=== PATIENT | female | born 1930 | race Caucasian/White ===

== ENCOUNTER 2020-05-31 14:20 | Inpatient (IN) | payer MEDICARE, OTHER ==
[~2020-05-31] VITALS: Ht 165.1 cm; Wt 73.9 kg
--- NOTE | 2020-06-02 19:30 | NUR ---
Received patient, awake, alert and oriented x 3, able to make needs known. Denies any pain/discomforts at this time. Oriented to room, call lights and bed functions. Routine admission care done. Plan of care initiated. Safety measures and fall prevention observed.
[2020-06-02] MEDS ORDERED: Z GUARD REMEDY PASTE 57 GM TUBE TOP PRN (19:45)
[2020-06-02] MEDS ORDERED: AMLO2.5T4 PO (19:50)
[2020-06-02] MEDS ORDERED: DONE10TA44 PO (19:50)
[2020-06-02] MEDS ORDERED: ASPI81TA31 PO (19:50)
[2020-06-02 20:09] VITALS: BP 148/58
[2020-06-03] MEDS: ACETAMINOPHEN 325 MG TABLET PO PRN (02:30)
[2020-06-03 04:12] VITALS: BP 152/67
[2020-06-03 08:00] VITALS: BP 170/67
[2020-06-03] MEDS: hydrALAZINE HCL 25 MG TABLET PO PRN ×2 (08:10→20:14)
[2020-06-03] MEDS: HYDROCODONE/APAP 5-325MG TABLET PO PRN ×2 (08:11→21:54)
[2020-06-03] MEDS: AMLODIPINE 2.5 MG TABLET PO SCH (08:11)
[2020-06-03 12:54] VITALS: BP 144/70
[2020-06-03 14:51] LABS: BASOPHILS # (AUTO) 0.1 K/uL (0.0-8.0); BASOPHILS % (AUTO) 0.7 % (0.0-2.0); EOSINOPHILS # (AUTO) 0.1 K/uL (0.0-0.7); HEMATOCRIT 22.4 % (31.2-41.9); HEMOGLOBIN 7.5 g/dL (10.9-14.3); LYMPHOCYTES # (AUTO) 1.5 K/uL (20.0-40.0); LYMPHOCYTES % (AUTO) 15.9 % (20.5-51.5); MEAN CORPUSCULAR HEMOGLOBIN 29.2 uug (24.7-32.8); MEAN CORPUSCULAR HGB CONC 34 g/dL (32.3-35.6); MEAN CORPUSCULAR VOLUME 87.4 fL (75.5-95.3); MONOCYTES # (AUTO) 0.6 K/uL (2.0-10.0); MONOCYTES % (AUTO) 6.9 % (0.0-11.0); NEUTROPHILS # (AUTO) 7.1 K/uL (1.8-8.9); NEUTROPHILS % (AUTO) 75.5 % (38.5-71.5); PLATELET COUNT (AUTO) 245 K/uL (179-408); RED BLOOD CELL COUNT(AUTO) 2.57 MIL/uL (3.63-4.92); WHITE BLOOD COUNT (AUTO) 9.4 K/uL (3.8-11.8)
[2020-06-03 14:59] LABS: CREATININE 0.8 mg/dL (0.6-1.3); POTASSIUM 4.3 mmol/L (3.5-5.1)
[2020-06-03 15:18] VITALS: BP 145/55
--- NOTE | 2020-06-03 15:29 | NUR ---
[facility]older Note: SW met with the pts daughter, Dara ([phone]), and SW provided her and the patient with the following caregiving resources: [facility]; ([phone]), [facility]; ([phone]), [facility]; ([phone]). boom stick worker will continue to remain available to patient and provide ongoing supportive counseling and assess for any psychosocial needs. boom stick worker will encourage patient to comply with ARU goals of care.
[2020-06-03 20:12] VITALS: BP 168/70
--- NOTE | 2020-06-03 20:15 | NUR ---
Received patient, awake, alert and oriented x 4, makes needs known. Elevated blood pressure 168/70 HR 74 administered hydralazine PRN.
[2020-06-03] MEDS ORDERED: ENOXAPARIN SODIUM 40 MG/0.4 ML DISP.SYRIN SQ SCH (21:00)
--- NOTE | 2020-06-03 22:00 | NUR ---
all due medication administered and tolerated well. Complaint of 7/10 pain in right hip, administered [place] PRN, will monitor for effect. All needs attended to promptly. PM care completed. kept clean dy and comfortable. Safety measures and fall prevention maintained. will continue to monitor throughout the night.
[2020-06-04 04:42] VITALS: BP 149/63
[2020-06-04] MEDS: HYDROCODONE/APAP 5-325MG TABLET PO PRN ×3 (05:43→18:20)
--- NOTE | 2020-06-04 05:51 | NUR ---
patient slept well through the night. no acute distress. PRN pain medication effective but complaining of 8/10 pain at the moment. Administered [place] PRN, per pt request. All needs met. Will endorse oncoming nurse to continue plan of care.
[2020-06-04 08:00] VITALS: BP 131/60
[2020-06-04] MEDS ORDERED: AMLODIPINE 2.5 MG TABLET PO SCH (09:00)
[2020-06-04] MEDS: AMLODIPINE 2.5 MG TABLET PO SCH (09:27)
[2020-06-04] MEDS: ASPIRIN EC 325 MG TABLET.DR PO SCH (09:28)
[2020-06-04] MEDS: DONEPEZIL 10 MG TABLET PO SCH (09:29)
[2020-06-04 16:00] VITALS: BP 113/62
[2020-06-04 20:00] VITALS: BP 151/60
[2020-06-05 04:00] VITALS: BP 155/58
[2020-06-05] MEDS: ACETAMINOPHEN 325 MG TABLET PO PRN ×2 (04:44→23:01)
--- NOTE | 2020-06-05 05:44 | NUR ---
Received pt resting in bed. AAO x3-4, able to make needs known. No acute distress. Denies pain/ discomfort @ beginning of shift . Requested pain medication for pain, administered Tylenol, effective. No s/s of infection on surgical site, scant amount of drainage noted, changed dressing. Incontinent of both B/B. All needs attended to promptly. Kept comfortable, clean and dry. Safety measures maintained. Call light and personal items within reach. Will continue to monitor.
[2020-06-05 08:00] VITALS: BP 150/57
[2020-06-05] MEDS: ASPIRIN EC 325 MG TABLET.DR PO SCH (08:14)
[2020-06-05] MEDS: AMLODIPINE 2.5 MG TABLET PO SCH (08:15)
[2020-06-05] MEDS: DONEPEZIL 10 MG TABLET PO SCH (08:15)
[2020-06-05] MEDS: HYDROCODONE/APAP 5-325MG TABLET PO PRN (09:11)
--- NOTE | 2020-06-05 13:29 | NUR ---
INDIVIDUALIZED PLAN OF CARE
[2020-06-05 20:30] VITALS: BP 131/42
[2020-06-06 05:27] VITALS: BP 158/67
[2020-06-06 08:00] VITALS: BP 141/52
[2020-06-06] MEDS: DONEPEZIL 10 MG TABLET PO SCH (08:24)
[2020-06-06] MEDS: ASPIRIN EC 325 MG TABLET.DR PO SCH (08:24)
[2020-06-06] MEDS: HYDROCODONE/APAP 5-325MG TABLET PO PRN ×2 (08:29→15:48)
[2020-06-06] MEDS: AMLODIPINE 2.5 MG TABLET PO SCH (08:29)
[2020-06-06 16:00] VITALS: BP 151/43
[2020-06-06 20:00] VITALS: BP 151/59
--- NOTE | 2020-06-06 20:15 | NUR ---
Received patient in bed.Alert and able to make needs known.Denied pain at this time.S/P right hip surgery IM nailing.Surgical site with stapes intact. Dressing clean and dry.Due meds given. Continue safety measures .Call light with in reach.Will continue to monitor.
[2020-06-06] MEDS: DOCUSATE SODIUM 100 MG CAPSULE PO SCH (20:48)
[2020-06-07 06:45] LABS: BASOPHILS # (AUTO) 0.1 K/uL (0.0-8.0); BASOPHILS % (AUTO) 1.7 % (0.0-2.0); EOSINOPHILS # (AUTO) 0.2 K/uL (0.0-0.7); EOSINOPHILS % (AUTO) 2.9 % (0.0-7.0); HEMATOCRIT 23.4 % (31.2-41.9); HEMOGLOBIN 7.7 g/dL (10.9-14.3); LYMPHOCYTES # (AUTO) 1.2 K/uL (20.0-40.0); LYMPHOCYTES % (AUTO) 19.5 % (20.5-51.5); MEAN CORPUSCULAR HEMOGLOBIN 29.2 uug (24.7-32.8); MEAN CORPUSCULAR HGB CONC 33 g/dL (32.3-35.6); MEAN CORPUSCULAR VOLUME 88.7 fL (75.5-95.3); MONOCYTES # (AUTO) 0.7 K/uL (2.0-10.0); MONOCYTES % (AUTO) 11.3 % (0.0-11.0); NEUTROPHILS % (AUTO) 64.6 % (38.5-71.5); PLATELET COUNT (AUTO) 358 K/uL (179-408); RED BLOOD CELL COUNT(AUTO) 2.64 MIL/uL (3.63-4.92); WHITE BLOOD COUNT (AUTO) 6.2 K/uL (3.8-11.8)
[2020-06-07 07:01] VITALS: BP 150/62
[2020-06-07 07:31] LABS: CREATININE 0.9 mg/dL (0.6-1.3); MAGNESIUM 2.3 mg/dL (1.8-2.4); PHOSPHOROUS 3.7 mg/dL (2.5-4.9); POTASSIUM 3.9 mmol/L (3.5-5.1)
[2020-06-07] MEDS: HYDROCODONE/APAP 5-325MG TABLET PO PRN ×2 (07:53→15:52)
[2020-06-07 08:00] VITALS: BP 133/61
[2020-06-07] MEDS: DOCUSATE SODIUM 100 MG CAPSULE PO SCH ×2 (08:21→21:19)
[2020-06-07] MEDS: AMLODIPINE 2.5 MG TABLET PO SCH (08:21)
[2020-06-07] MEDS: ASPIRIN EC 325 MG TABLET.DR PO SCH (08:22)
[2020-06-07] MEDS: DONEPEZIL 10 MG TABLET PO SCH (08:22)
[2020-06-07 16:00] VITALS: BP 148/70
--- NOTE | 2020-06-07 17:40 | NUR ---
no changes noted during shift, pain is well managed with pain medication and with nonpharmacological interventions, no active bleeding noted from incision site, well approximated. needs attended timely
[2020-06-07 21:04] VITALS: BP 120/48
[2020-06-07] MEDS: ACETAMINOPHEN 325 MG TABLET PO PRN (21:19)
--- NOTE | 2020-06-07 22:00 | NUR ---
Received pt resting in bed. AAO x3-4, able to make needs known. No acute distress, no SOB noted. Complaint of 4/10 aching pain, administered Tylenol PRN. No s/s of infection on surgical site, clean, dry and intact changed dressing. All needs attended to promptly. Kept comfortable. Safety measures maintained. Call light and personal items within reach. Will continue to monitor.
[2020-06-08 04:45] VITALS: BP 150/65
[2020-06-08] MEDS: HYDROCODONE/APAP 5-325MG TABLET PO PRN ×2 (06:27→13:08)
[2020-06-08 08:00] VITALS: BP 140/63
[2020-06-08] MEDS: DOCUSATE SODIUM 100 MG CAPSULE PO SCH ×2 (08:35→21:57)
[2020-06-08] MEDS: DONEPEZIL 10 MG TABLET PO SCH (08:35)
[2020-06-08] MEDS: AMLODIPINE 2.5 MG TABLET PO SCH (08:35)
[2020-06-08] MEDS: ASPIRIN EC 325 MG TABLET.DR PO SCH (08:35)
[2020-06-08] MEDS ORDERED: HYDROCODONE/APAP 10-325 MG TABLET PO PRN (15:00)
--- NOTE | 2020-06-08 15:03 | NUR ---
changed norco to 10/325mg ordered by dr mcconnell, for better management of pain in right hip, patient is alert, oriented x2-3, with episodes of forgetfulness, no sob, resp even nonlabored, skin warm and to touch, incision site is clean and dry, stapes are intact, site is well approximated, no signs and symptoms of infection noted at incision site, needs attended timely,
[2020-06-08] MEDS: hydrALAZINE HCL 25 MG TABLET PO PRN (15:41)
[2020-06-08 16:06] VITALS: BP 161/73
[2020-06-08 20:00] VITALS: BP 139/45
[2020-06-09 04:45] VITALS: BP 131/72
--- NOTE | 2020-06-09 05:48 | NUR ---
AAOx2-3 forgetful at times with a little bit confusion. VSS. Needs attended. Tolerated po meds well. OOB with walker with max assist. Voiding freely. Right hip incision dionicio intact. No acute distress noted. Fall precautions maintained. Siderails up for safety.
[2020-06-09] MEDS: DONEPEZIL 10 MG TABLET PO SCH (08:34)
[2020-06-09] MEDS: ASPIRIN EC 325 MG TABLET.DR PO SCH (08:36)
[2020-06-09] MEDS: DOCUSATE SODIUM 100 MG CAPSULE PO SCH ×2 (08:36→20:24)
[2020-06-09] MEDS: AMLODIPINE 2.5 MG TABLET PO SCH (08:39)
--- NOTE | 2020-06-09 13:02 | NUR ---
INTERDISCIPLINARY TEAM CONFERENCE
[2020-06-09] MEDS: ACETAMINOPHEN 325 MG TABLET PO SCH ×2 (13:47→17:19)
[2020-06-09 16:36] VITALS: BP 125/49
[2020-06-09 20:25] VITALS: BP 120/45
[2020-06-09] MEDS: CELECOXIB 100 MG CAPSULE PO SCH (20:29)
[2020-06-10] MEDS: HYDROCODONE/APAP 5-325MG TABLET PO PRN (01:44)
--- NOTE | 2020-06-10 02:00 | NUR ---
Received pt resting in bed. AAO x3-4, able to make needs known, No acute distress, no SOB noted. Complaint of 6/10 aching pain, administered hydrocodone PRN. No s/s of infection on surgical site, clean, dry and intact changed dressing. All needs attended to promptly. Kept comfortable. Safety measures maintained. Call light and personal items within reach. Will continue to monitor.
[2020-06-10 04:15] VITALS: BP 150/56
[2020-06-10 08:00] VITALS: BP 143/57
[2020-06-10] MEDS: DOCUSATE SODIUM 100 MG CAPSULE PO SCH ×2 (09:33→20:29)
[2020-06-10] MEDS: ACETAMINOPHEN 325 MG TABLET PO SCH ×3 (09:34→17:48)
[2020-06-10] MEDS: DONEPEZIL 10 MG TABLET PO SCH (09:34)
[2020-06-10] MEDS: ASPIRIN EC 325 MG TABLET.DR PO SCH (09:34)
[2020-06-10] MEDS: AMLODIPINE 2.5 MG TABLET PO SCH (09:34)
[2020-06-10] MEDS: CELECOXIB 100 MG CAPSULE PO SCH ×2 (09:37→20:29)
[2020-06-10 16:00] VITALS: BP 140/52
--- NOTE | 2020-06-10 18:43 | NUR ---
EOSS: No significant acute changes during this shift. No changes in pt. LOC. All due medications given as ordered with no ASE. Pt. participated with PT and tolerated tx well. No new skin condition noted. Safety measures in place. Call light and all frequently used items within pt. reach. Will endorse to oncoming shift accordingly.
[2020-06-10 20:00] VITALS: BP 148/57
--- NOTE | 2020-06-10 23:15 | NUR ---
No acute distress, no SOB noted. No s/s of infection on surgical site, clean, dry and intact changed dressing. All needs attended to promptly.All due medication administered and tolerated well. Kept comfortable. Safety measures maintained. Call light and personal items within reach. Will continue to monitor throughout the night.
[2020-06-11] MEDS: HYDROCODONE/APAP 5-325MG TABLET PO PRN (01:46)
[2020-06-11 04:00] VITALS: BP 147/73
--- NOTE | 2020-06-11 04:56 | NUR ---
patient slept well through the night. no acute distress. Administered [place] PRN, per pt request, complaint of pain in hip and could not sleep. All needs met. Will endorse oncoming nurse to continue plan of care.
[2020-06-11 08:00] VITALS: BP 160/66
[2020-06-11] MEDS: ACETAMINOPHEN 325 MG TABLET PO SCH ×3 (10:32→17:41)
[2020-06-11] MEDS: DOCUSATE SODIUM 100 MG CAPSULE PO SCH ×2 (10:32→20:50)
[2020-06-11] MEDS: DONEPEZIL 10 MG TABLET PO SCH (10:32)
[2020-06-11] MEDS: ASPIRIN EC 325 MG TABLET.DR PO SCH (10:32)
[2020-06-11] MEDS: CELECOXIB 100 MG CAPSULE PO SCH ×2 (10:33→20:50)
[2020-06-11] MEDS: AMLODIPINE 2.5 MG TABLET PO SCH (10:33)
[2020-06-11 16:00] VITALS: BP 139/70
[2020-06-11 21:04] VITALS: BP 129/58
--- NOTE | 2020-06-12 01:54 | NUR ---
Resting in bed upon initial rounds. AAOx1-2 Confused and disoriented at times. VSS No acute distress noted. Tolerated po meds well without difficulty. Incontinent of urine x3. Kept clean and dry. No BM noted this shift. Will monitor patient. Fall precautions maintained. Siderails up for safety. Bed alarm on. Right incision with dionicio intact with dressing clean dry and clean. No complaints presented during shift.
[2020-06-12 05:48] VITALS: BP 152/59
--- NOTE | 2020-06-12 06:36 | NUR ---
End of shift notes: Patient slept at short intervals. Confused and oriented. Incontinent of bowel and bladder. Kept clean and dry. Patient very needy. All needs attended and met. Will monitor patient. Repositioned.VSS.
[2020-06-12 09:48] VITALS: BP 151/64
[2020-06-12] MEDS: ASPIRIN EC 325 MG TABLET.DR PO SCH (09:56)
[2020-06-12] MEDS: CELECOXIB 100 MG CAPSULE PO SCH ×2 (09:56→20:24)
[2020-06-12] MEDS: DOCUSATE SODIUM 100 MG CAPSULE PO SCH ×2 (09:56→20:24)
[2020-06-12] MEDS: ACETAMINOPHEN 325 MG TABLET PO SCH ×3 (09:56→17:00)
[2020-06-12] MEDS: DONEPEZIL 10 MG TABLET PO SCH (09:56)
[2020-06-12] MEDS: AMLODIPINE 2.5 MG TABLET PO SCH (09:57)
[2020-06-12 12:26] VITALS: BP 138/60
[2020-06-12 15:47] VITALS: BP 155/77
--- NOTE | 2020-06-12 18:59 | NUR ---
Gps/Concrete Form Setter- Complained of constantly being cold, assisted with her repositioning, oob to her wheel chair ,safety reviewed and cntinue to emphasized. . OOB to chair, participated with her P.T.
[2020-06-12 20:22] VITALS: BP 142/56
--- NOTE | 2020-06-13 03:52 | NUR ---
Condition unchanged. Admitted for a right hip IM nailing on 05/30/[address] Hernández. AAO x4 Needs attended. VSS. Kept comfortable. Will monitor patient. No acute distress noted. Tolerated po meds. Patient on fall preventiion. Incontinent of bowel and bladder. Kept clean and dry.
[2020-06-13 05:06] VITALS: BP 158/59
--- NOTE | 2020-06-13 06:42 | NUR ---
End of shift notes: slept well throughout the night. No signs of restlessness or agitation. Kept comfortable. Incontinent of urine x3. Kept clean and dry. Fall precautions maintained. Siderails up for safety.
[2020-06-13 07:42] VITALS: BP 153/62
[2020-06-13] MEDS: ASPIRIN EC 325 MG TABLET.DR PO SCH (08:07)
[2020-06-13] MEDS: CELECOXIB 100 MG CAPSULE PO SCH ×2 (08:08→20:16)
[2020-06-13] MEDS: DOCUSATE SODIUM 100 MG CAPSULE PO SCH ×2 (08:08→20:16)
[2020-06-13] MEDS: ACETAMINOPHEN 325 MG TABLET PO SCH ×3 (08:08→17:00)
[2020-06-13] MEDS: AMLODIPINE 2.5 MG TABLET PO SCH (08:09)
[2020-06-13] MEDS: DONEPEZIL 10 MG TABLET PO SCH (08:09)
--- NOTE | 2020-06-13 10:48 | NUR ---
AAOx1-2 All med given without difficulty. Tolerated po meds well. Ate fairly at breakfast. Incontinent of bowel and bladder. Tolerated am care. OOB with PT. No distress noted.
--- NOTE | 2020-06-13 14:10 | NUR ---
Patient scheduled for rehabilitation. Conversant and understood rehabilitation plan for strength and endurance building. Patient encouraged to participate fully with acute rehab therapist.
--- NOTE | 2020-06-13 15:31 | NUR ---
Patient returned from rehabilitation. Report received from therapist; and making slight progress. Patient alert and verbal of needs. Denies any shortness of breath. Patient was placed in bed. Ad feliz without any distress at this time.
[2020-06-13 16:00] VITALS: BP 144/52
[2020-06-13 20:50] VITALS: BP 123/66
--- NOTE | 2020-06-13 21:25 | NUR ---
Received pt resting in bed. AAO x3-4. Pt appears to be pleasant. No acute distress noted. Denies pain/ discomfort. Due meds given as ordered, tolerated well. Safety measures maintained. Call light and personal items within reach. Will continue to monitor.
[2020-06-14 05:01] VITALS: BP 158/66
[2020-06-14 08:00] VITALS: BP 133/61
[2020-06-14] MEDS: ACETAMINOPHEN 325 MG TABLET PO SCH ×3 (08:11→17:28)
[2020-06-14] MEDS: DONEPEZIL 10 MG TABLET PO SCH (08:11)
[2020-06-14] MEDS: DOCUSATE SODIUM 100 MG CAPSULE PO SCH ×2 (08:11→20:38)
[2020-06-14] MEDS: AMLODIPINE 2.5 MG TABLET PO SCH (08:12)
[2020-06-14] MEDS: CELECOXIB 100 MG CAPSULE PO SCH ×2 (09:52→20:38)
[2020-06-14] MEDS: ASPIRIN EC 325 MG TABLET.DR PO SCH (09:52)
[2020-06-14] MEDS: HYDROCODONE/APAP 5-325MG TABLET PO PRN (14:10)
[2020-06-14 16:00] VITALS: BP 110/47
--- NOTE | 2020-06-14 18:00 | NUR ---
Informed Dr. Olvera regarding noted decreased PO intake and daughter's complain of episode of altered mental status, MD ordered CBC, CMP, magnesium in am. Patient remains awake, alert, oriented x 2-3 with episodes of forgetfulness, not in any form of distress, on room air, compliant with medications and care. Complained of pain on the right hip, given PRN pain medication as ordered with noted relief. Needs attended to promptly. Patient participated with therapy. Call light and frequently used items placed within patient's reach. Surgical dressing change done on right hip, dionicio intact, no noted signs of infection. Will continue to monitor and will endorse accordingly.
[2020-06-14 20:09] VITALS: BP 142/60
--- NOTE | 2020-06-15 04:00 | NUR ---
PATIENT IS IN BED, ALERT AND VERBALLY RESPONSIVE, CAN MAKE NEEDS KNOWN. PATIENT HAD INTERMITTENT SLEEP DURING THE NIGHT. PATIENT RECEIVED DUE MEDICATIONS, TOLERATED WELL. RECEIVED ORDER FOR COVID ANTIGEN TEST AND RIGHT HIP XRAY FOR POSSIBLE DISCHARGE PER ELECTRONIC [employer] TECHNICIAN ENDORSED BY AM NURSE.
[2020-06-15 04:03] VITALS: BP 140/58
[2020-06-15 06:32] LABS: BASOPHILS % (AUTO) 0.5 % (0.0-2.0); EOSINOPHILS % (AUTO) 0.5 % (0.0-7.0); HEMATOCRIT 27.1 % (31.2-41.9); HEMOGLOBIN 8.9 g/dL (10.9-14.3); LYMPHOCYTES # (AUTO) 1.2 K/uL (20.0-40.0); LYMPHOCYTES % (AUTO) 28.5 % (20.5-51.5); MEAN CORPUSCULAR HEMOGLOBIN 29.1 uug (24.7-32.8); MEAN CORPUSCULAR HGB CONC 33 g/dL (32.3-35.6); MEAN CORPUSCULAR VOLUME 89.1 fL (75.5-95.3); MONOCYTES # (AUTO) 0.4 K/uL (2.0-10.0); MONOCYTES % (AUTO) 8.7 % (0.0-11.0); NEUTROPHILS # (AUTO) 2.6 K/uL (1.8-8.9); NEUTROPHILS % (AUTO) 61.8 % (38.5-71.5); PLATELET COUNT (AUTO) 386 K/uL (179-408); RED BLOOD CELL COUNT(AUTO) 3.04 MIL/uL (3.63-4.92); WHITE BLOOD COUNT (AUTO) 4.2 K/uL (3.8-11.8)
[2020-06-15 06:43] LABS: BILIRUBIN,TOTAL 0.6 mg/dL (0.2-1.0); CREATININE 0.9 mg/dL (0.6-1.3); MAGNESIUM 2.3 mg/dL (1.8-2.4); POTASSIUM 4.1 mmol/L (3.5-5.1); TOTAL PROTEIN, SERUM 6.6 g/dL (6.4-8.2)
[2020-06-15 07:53] VITALS: BP 158/59
[2020-06-15] MEDS: AMLODIPINE 2.5 MG TABLET PO SCH (08:43)
[2020-06-15] MEDS: DOCUSATE SODIUM 100 MG CAPSULE PO SCH ×2 (08:43→20:38)
[2020-06-15] MEDS: DONEPEZIL 10 MG TABLET PO SCH (08:43)
[2020-06-15] MEDS: ACETAMINOPHEN 325 MG TABLET PO SCH ×3 (08:43→16:39)
[2020-06-15] MEDS: ASPIRIN EC 325 MG TABLET.DR PO SCH (08:43)
[2020-06-15] MEDS: CELECOXIB 100 MG CAPSULE PO SCH ×2 (08:43→20:38)
[2020-06-15 16:00] VITALS: BP 137/52
--- NOTE | 2020-06-15 19:14 | NUR ---
no changes noted during shift
[2020-06-15 20:00] VITALS: BP 139/67
[2020-06-16] MEDS: HYDROCODONE/APAP 5-325MG TABLET PO PRN (02:26)
[2020-06-16 04:00] VITALS: BP 161/65
--- NOTE | 2020-06-16 04:43 | NUR ---
AAOx2=3 No acute distress noted. VSS kept comfortable. Patient right hip dressing intact. Needs attended. Voiding okay. Will monitor patient. Call drummond within reach. Patient COVID negative. Possible d/c in am.
[2020-06-16 08:00] VITALS: BP 124/54
[2020-06-16] MEDS: DONEPEZIL 10 MG TABLET PO SCH (09:02)
[2020-06-16] MEDS: DOCUSATE SODIUM 100 MG CAPSULE PO SCH (09:03)
[2020-06-16] MEDS: ACETAMINOPHEN 325 MG TABLET PO SCH (09:04)
[2020-06-16] MEDS: ASPIRIN EC 325 MG TABLET.DR PO SCH (09:04)
[2020-06-16 09:05] VITALS: BP 127/54
[2020-06-16] MEDS: AMLODIPINE 2.5 MG TABLET PO SCH (09:05)
[2020-06-16] MEDS: CELECOXIB 100 MG CAPSULE PO SCH (09:06)
--- NOTE | 2020-06-16 11:14 | NUR ---
PATIENT DISCHARGED HOME,PICKED UP BY DAUGHTER, PATIENT IS IN STABLE CONDITION, DISCHARGE INSTRUCTIONS GIVEN TO PATIENT AND DAUGHTER SUSAN, AND DISCHARGE INSTRUCTIONS ARE INCLUDED IN THE DISCHARGE PACKET, DAUGHTER MADE AWARE ABOUT FOLLOW UP APT WITH ORTHOPEDIC ON 06/23/20 AT 2PM, DAUGHTER VERBALIZED UNDERSTANDING OF IT, BELONGINGS ARE ACCOUNTED AND SIGNED SENT WITH PATIENT HOME, NO IV OR CENTRAL LINE ACCESS ON PATIENT, PATIENT ASSISTED TO TRANSFERRED TO THE CAR SAFELY
--- NOTE | 2020-06-16 11:23 | NUR ---
PATIENT LEFT GLASSES ON THE WHEELCHAIR, CALLED FAMILY AND TOLD THEM TO COME BACK TO GET THE GLASSES, PER DAUGHTER SUSAN SHE WILL COME AROUND 1PM AND GET IT
== END 2020-06-16 11:13 | disposition home health service (06) | DRG 559 ==
PROVIDERS: ADMIT Physical Medicine & Rehabilitation Pain Medicine; ATTEND Physical Medicine & Rehabilitation Pain Medicine
DX: S72.141D Displaced intertrochanteric fracture of right femur, subsequent encounter for closed fracture with routine healing (principal); N17.0 Acute kidney failure with tubular necrosis; F03.90 Unspecified dementia, unspecified severity, without behavioral disturbance, psychotic disturbance, mood disturbance, and anxiety; D64.9 Anemia, unspecified; I10 Essential (primary) hypertension; R41.0 Disorientation, unspecified; W01.0XXD Fall on same level from slipping, tripping and stumbling without subsequent striking against object, subsequent encounter; R73.9 Hyperglycemia, unspecified
CPT/HCPCS: 36415; 73502; 83735; 84100; 85025; A4663